=== PATIENT | female | born 1950 | race Caucasian/White ===

== ENCOUNTER 2019-04-06 12:56 | Outpatient (CLI) | payer MEDICARE ==
--- NOTE | 2019-04-06 13:43 | RAD ---
TWO VIEWS CHEST: 04/06/19 PROVIDED CLINICAL HISTORY: Dyspnea. FINDINGS: Cardiac and mediastinal silhouette is within normal limits. Lungs appear clear. No pleural fluid or pneumothorax apparent. IMPRESSION: No evidence for an acute cardiopulmonary process. POS: [facility]
== END 2019-04-06 12:57 | disposition home or self-care (01) ==
LOC: RAD 12:56
PROVIDERS: ATTEND Internal Medicine Pulmonary Disease
DX: R06.00 Dyspnea, unspecified (principal)
CPT/HCPCS: 71046